=== PATIENT | female | born 1955 | race Caucasian/White ===

== ENCOUNTER 2017-04-13 08:27 | Inpatient (IN) | payer OTHER ==
[~2017-04-13] VITALS: Ht 165.1 cm; Wt 67.5 kg
[~2017-04-13 08:27] MED LIST: AMLO10TA4 PO; AMLO2.5T2 PO; CEFD300C37 PO; DOXY100T PO; HYDR-3307 PO; LIOT5TAB3 PO; OLME20TA19 PO; OLME5TAB4 PO; THYR120T PO; THYR15TA PO; THYROID MEDICINE; TRAZ100T15 PO
[2017-04-13] MEDS ORDERED: ALBUTEROL/IPRATROPIUM 2.5MG/0.5MG, 3 ML ONE (09:15)
[2017-04-13] MEDS ORDERED: ACETAMINOPHEN 500 MG TABLET PO ONE (09:30)
[2017-04-13] MEDS ORDERED: SODIUM CHLORIDE 0.9% 1,000ML IVBOLUS ONE ×2 (09:30→12:00)
[2017-04-13] MEDS ORDERED: SODIUM CHLORIDE FLUSH 10ML SYR IVF ONE (09:30)
[2017-04-13] MEDS ORDERED: ALBUTEROL/IPRATROPIUM 2.5MG/0.5MG, 3 ML NPPB ONE (09:30)
[2017-04-13] MEDS ORDERED: methylPREDNISolone SOD SUCC 125 MG/2 ML IVPush ONE (09:30)
[2017-04-13] MEDS ORDERED: CEFTRIAXONE PMX 1GM/50ML 50 ML IVPB ONE (09:30)
[2017-04-13 09:35] LABS: HEMATOCRIT 49.4 % (34.6-47.8); HEMOGLOBIN 16.5 g/dL (11.7-16.4); WHITE BLOOD COUNT 13.5 x10^3/uL (3.4-10)
[2017-04-13] MEDS ORDERED: CEFTRIAXONE PMX 1GM/50ML 50 ML ONE (09:49)
[2017-04-13] MEDS ORDERED: methylPREDNISolone SOD SUCC 125 MG/2 ML ONE (09:49)
[2017-04-13] MEDS ORDERED: ACETAMINOPHEN 500 MG TABLET ONE (09:49)
[2017-04-13 09:50] LABS: ASPARTATE AMINO TRANSFERASE 16 U/L (15-37); BLOOD UREA NITROGEN 22 mg/dL (7-18)
[2017-04-13 10:30] LABS: RAPID INFLUENZA A Negative (Negative); RAPID INFLUENZA B Negative (Negative)
[2017-04-13 13:30] VITALS: BP 99/64
[2017-04-13] MEDS ORDERED: ONDANSETRON 2MG/ML, 2ML IVPush PRN (14:30)
[2017-04-13] MEDS ORDERED: LABETALOL 5MG/ML, 20ML IVPush PRN (14:30)
[2017-04-13] MEDS ORDERED: ONDANSETRON ODT 4 MG PO PRN (14:30)
[2017-04-13] MEDS ORDERED: GUAIFENESIN/DM 200-20MG, 10ML UDC PO PRN (14:30)
[2017-04-13] MEDS: ALBUTEROL/IPRATROPIUM 2.5MG/0.5MG, 3 ML NPPB SCH ×2 (15:00→18:50)
[2017-04-13] MEDS: NS + 20MEQ KCL 1,000 ML IV SCH (15:40)
[2017-04-13] MEDS: predniSONE 50MG TABLET PO SCH (16:10)
[2017-04-13] MEDS ORDERED: POTASSIUM CHLORIDE 20 MEQ TAB.ER.PRT PO ONE (16:30)
[2017-04-13] MEDS ORDERED: FOLIC ACID 1 MG TABLET PO ONE (16:30)
[2017-04-13] MEDS: ENOXAPARIN 40 MG/0.4 ML SQ SCH (17:14)
[2017-04-13 20:16] VITALS: BP 120/78
[2017-04-13] MEDS: TRAZODONE 100MG TABLET PO SCH (23:49)
[2017-04-14 01:10] VITALS: BP 130/77
[2017-04-14] MEDS: HYDROcodone/APAP 5/325 TABLET PO PRN ×3 (06:20→20:16)
[2017-04-14] MEDS: NS + 20MEQ KCL 1,000 ML IV SCH ×2 (06:20→15:59)
[2017-04-14] MEDS: LEVOTHYROXINE 137 MCG TABLET PO SCH (06:21)
[2017-04-14] MEDS: ALBUTEROL/IPRATROPIUM 2.5MG/0.5MG, 3 ML NPPB SCH ×4 (07:31→19:53)
[2017-04-14 07:44] VITALS: BP 135/80
[2017-04-14] MEDS: MULTIVITAMIN 1 TABLET PO SCH (07:47)
[2017-04-14] MEDS: predniSONE 50MG TABLET PO SCH (07:47)
[2017-04-14] MEDS: LIOTHYRONINE 5 MCG TABLET PO SCH (07:47)
[2017-04-14] MEDS: THIAMINE 100MG TABLET PO SCH (07:47)
[2017-04-14 07:56] LABS: HEMATOCRIT 44.2 % (34.6-47.8); HEMOGLOBIN 14.6 g/dL (11.7-16.4); WHITE BLOOD COUNT 12.6 x10^3/uL (3.4-10)
[2017-04-14 08:08] LABS: BLOOD UREA NITROGEN 20 mg/dL (7-18)
[2017-04-14 08:19] LABS: IS PT STATUS REG ER OR PRE ER? NO
[2017-04-14 08:50] VITALS: BP 118/76
[2017-04-14] MEDS ORDERED: THYROID 30 MG TABLET PO SCH (09:00)
[2017-04-14 13:26] VITALS: BP 133/84
[2017-04-14 14:40] LABS: IS PT STATUS REG ER OR PRE ER? NO
[2017-04-14] MEDS: ENOXAPARIN 40 MG/0.4 ML SQ SCH (16:40)
[2017-04-14] MEDS ORDERED: TIOT18CA INH (16:48)
[2017-04-14] MEDS: CEFTRIAXONE PMX 1GM/50ML 50 ML IV SCH (20:03)
[2017-04-14] MEDS: SPIRIVA 1.25 MCG INH SCH (20:08)
[2017-04-14] MEDS: DOXYCYCLINE 100MG TABLET PO SCH (20:16)
[2017-04-14] MEDS: TRAZODONE 100MG TABLET PO SCH (20:16)
[2017-04-14 20:32] VITALS: BP 131/82
[2017-04-15] MEDS: NS + 20MEQ KCL 1,000 ML IV SCH (00:05)
[2017-04-15 01:49] VITALS: BP 145/86
[2017-04-15] MEDS: LEVOTHYROXINE 137 MCG TABLET PO SCH (03:40)
[2017-04-15] MEDS: HYDROcodone/APAP 5/325 TABLET PO PRN ×2 (03:40→14:31)
[2017-04-15 06:09] LABS: HEMOGLOBIN 13.8 g/dL (11.7-16.4); WHITE BLOOD COUNT 8.1 x10^3/uL (3.4-10)
[2017-04-15 06:18] LABS: BLOOD UREA NITROGEN 17 mg/dL (7-18)
[2017-04-15 06:28] LABS: IS PT STATUS REG ER OR PRE ER? NO
[2017-04-15] MEDS: ALBUTEROL/IPRATROPIUM 2.5MG/0.5MG, 3 ML NPPB SCH ×2 (07:00→10:10)
[2017-04-15 07:35] VITALS: BP 145/98
[2017-04-15] MEDS: SPIRIVA 1.25 MCG INH SCH ×2 (09:00→19:55)
[2017-04-15] MEDS: DOXYCYCLINE 100MG TABLET PO SCH ×2 (09:00→19:55)
[2017-04-15] MEDS: predniSONE 50MG TABLET PO SCH (10:44)
[2017-04-15] MEDS: THIAMINE 100MG TABLET PO SCH (10:45)
[2017-04-15] MEDS: LIOTHYRONINE 5 MCG TABLET PO SCH (10:45)
[2017-04-15] MEDS: MULTIVITAMIN 1 TABLET PO SCH (10:45)
[2017-04-15] MEDS ORDERED: REGADENOSON 0.4 MG/5 ML SYRINGE ONE (11:18)
[2017-04-15 12:35] VITALS: BP 137/89
[2017-04-15] MEDS: ENOXAPARIN 40 MG/0.4 ML SQ SCH (17:18)
[2017-04-15 18:25] VITALS: BP 129/79
[2017-04-15] MEDS: CEFTRIAXONE PMX 1GM/50ML 50 ML IV SCH (19:55)
[2017-04-15] MEDS: TRAZODONE 100MG TABLET PO SCH (19:55)
[2017-04-16 02:42] VITALS: BP 143/91
[2017-04-16] MEDS: HYDROcodone/APAP 5/325 TABLET PO PRN ×2 (03:28→13:43)
[2017-04-16 03:37] VITALS: BP 104/46
[2017-04-16 05:40] LABS: HEMOGLOBIN 14.9 g/dL (11.7-16.4)
[2017-04-16] MEDS: LEVOTHYROXINE 137 MCG TABLET PO SCH (05:51)
[2017-04-16 05:53] LABS: BLOOD UREA NITROGEN 17 mg/dL (7-18)
[2017-04-16 06:25] VITALS: BP 130/83
[2017-04-16] MEDS: THIAMINE 100MG TABLET PO SCH (09:00)
[2017-04-16] MEDS: SPIRIVA 1.25 MCG INH SCH (09:00)
[2017-04-16] MEDS: predniSONE 50MG TABLET PO SCH (10:10)
[2017-04-16] MEDS: LIOTHYRONINE 5 MCG TABLET PO SCH (10:10)
[2017-04-16] MEDS: DOXYCYCLINE 100MG TABLET PO SCH (10:11)
[2017-04-16] MEDS: MULTIVITAMIN 1 TABLET PO SCH (10:11)
[2017-04-16] MEDS ORDERED: ALBUTEROL/IPRATROPIUM 2.5MG/0.5MG, 3 ML NPPB PRN (11:00)
[2017-04-16] MEDS ORDERED: FUROSEMIDE 20 MG/2 ML IV ONE (12:30)
[2017-04-16 13:05] VITALS: BP 129/78
[2017-04-16] MEDS: CEFTRIAXONE PMX 1GM/50ML 50 ML IV SCH (13:43)
[2017-04-16] MEDS ORDERED: CEFD300C37 PO (14:17)
[2017-04-16] MEDS ORDERED: DOXY100T PO (14:17)
[2017-04-16] MEDS ORDERED: PRED50TA PO (14:20)
[2017-04-16] MEDS ORDERED: ASPI-515 PO (14:39)
== END 2017-04-16 18:42 | disposition home or self-care (01) | DRG 871 ==
LOC: ED 11:47 → EDIP 11:56 → 3NE 13:09 → 4EST 04-14 10:00
PROVIDERS: ADMIT Family Medicine; ATTEND Family Medicine
DX: A41.9 Sepsis, unspecified organism (principal); J96.21 Acute and chronic respiratory failure with hypoxia; I11.0 Hypertensive heart disease with heart failure; I50.30 Unspecified diastolic (congestive) heart failure; J44.1 Chronic obstructive pulmonary disease with (acute) exacerbation; N30.90 Cystitis, unspecified without hematuria; E03.9 Hypothyroidism, unspecified; E87.6 Hypokalemia; F17.200 Nicotine dependence, unspecified, uncomplicated; M79.7 Fibromyalgia; R65.20 Severe sepsis without septic shock; Z83.3 Family history of diabetes mellitus; Z88.0 Allergy status to penicillin; Z88.2 Allergy status to sulfonamides; Z88.7 Allergy status to serum and vaccine; Z88.8 Allergy status to other drugs, medicaments and biological substances; Z91.041 Radiographic dye allergy status; Z91.040 Latex allergy status; Z88.5 Allergy status to narcotic agent; Z91.013 Allergy to seafood; Z90.49 Acquired absence of other specified parts of digestive tract; D75.1 Secondary polycythemia
CPT/HCPCS: 36415; 71010; 71250; 78452; 80048; 80053; 81001; 82040; 83605; 83735; 84145; 84439; 84443; 84484; 85025; 87040; 87077; 87086; 87186; 87400; 93005; 93017; 93306; 94640; 96361; 96365; J0696; J1650; J2785; J3480; J7620; A9502; C9898; J1940; J2930; J7030; J7512